=== PATIENT | female | born 1950 | race Caucasian/White ===

== ENCOUNTER 2016-11-15 10:34 | Day surgery (SDC) | payer OTHER ==
[2016-11-09 18:17] VITALS: BMI 25.3
[~2016-11-15 10:34] MED LIST: oxyCODONE HCL 10 MG SUSTAINED ACTING TABLET PO ONE
[2016-11-15] MEDS ORDERED: LIDOCAINE 1%/EPI 1:100000 (20 ML MULTI DOSE VIAL) ONE (12:59)
[2016-11-15] MEDS ORDERED: BUPIVACAINE HCL/PF 2.5 MG/ML - 30 ML VIAL IJ ONE (12:59)
[2016-11-15] MEDS ORDERED: THROMBIN (BOVINE) 5,000 UNIT VIAL TP ONE (12:59)
--- NOTE | 2016-11-15 13:01 | HP ---
History & Physical Update - History History: No Change - Physical Physical: No Change - Assessment Assessment: No Change - Plan Plan: No Change
[2016-11-15] MEDS ORDERED: MIDAZOLAM HCL 2 MG/2 ML SINGLE DOSE VIAL ONE ×2 (13:24→13:30)
[2016-11-15] MEDS ORDERED: BUPIVACAINE HCL/PF 0.5% (5MG/ML) 10 ML VIAL ONE (13:28)
[2016-11-15] MEDS ORDERED: ONDANSETRON 4 MG/2 ML VIAL ONE (13:42)
[2016-11-15] MEDS ORDERED: DEXAMETHASONE SOD PHOSPHATE 4 MG/1 ML VIAL ONE (13:42)
[2016-11-15] MEDS ORDERED: oxyCODONE HCL 5 MG TABLET PO PRN (14:19)
[2016-11-15] MEDS ORDERED: ONDANSETRON 4 MG/2 ML VIAL IVPUSH PRN (14:19)
[2016-11-15] MEDS ORDERED: LACTATED RINGERS SOLUTION 1,000 ML IV SCH (14:30)
[2016-11-15] MEDS ORDERED: methylPREDNISolone ACET (DEPO) 40 MG/1 ML VIAL ONE (14:42)
--- NOTE | 2016-11-15 15:27 | OP ---
Operative Note - Note: Operative Date: 11/15/16 Pre-Operative Diagnosis: L5-S1 stenosis, disc herniation Operation: L5-S1 laminectomy, micro discectomy Surgeon: Maciej Ch Expediter Clerk: Genoveva Kapadia Anesthesiologist/FOOD SERVICE SALES REPRESENTATIVES: Bozena Mendoza Anesthesia: Spinal Estimated Blood Loss (mls): 20 Fluid Volume Replaced (mls): 1,300 Operative Report Dictated: Yes
--- NOTE | 2016-11-15 15:35 | SURG ---
Surgery Advertising Copy Writer Note Advertising Copy Writer: Genoveva Kapadia PA-C Date of Service: 11/15/16 Diagnosis: L5-S1 stenosis, disc herniation Procedure: L5-S1 laminectomy, micro discectomy I was present for the entirety of the operative procedure. For further detail, please refer to operative report. Visit type - Case Type Case Type: Scheduled Admission - Emergency Emergency Visit: No - New patient This patient is new to me today: Yes Date on this admission: 11/15/16 - Critical Care Critical Care patient: No
[2016-11-15] MEDS ORDERED: traMADol HCL 50 MG TABLET PO PRN (15:44)
--- NOTE | 2016-11-15 16:00 | OP ---
DATE OF OPERATION: 11/15/2016 PREOPERATIVE DIAGNOSIS: Spinal stenosis at L5-S1. POSTOPERATIVE DIAGNOSIS: Spinal stenosis at L5-S1. PROCEDURE PERFORMED: Revision laminectomy, L5-S1. SURGEON: Maciej Ch MD DEALMAKER: KAYY Arora ESTIMATED BLOOD LOSS: 50 mL INTRAVENOUS FLUIDS: Per Anesthesia. ANESTHESIA: Spinal. COMPLICATIONS: None. DISPOSITION: Patient was brought to the PACU in stable condition. INDICATION FOR SURGERY: The patient is a 65-year-old female who has been suffering from pain going from her back down her right leg. X-rays and MRI were completed which noted that she had spinal stenosis at L5-S1 secondary to a herniated disk. She had gone through an exhaustive course of treatment for this including medications, physical therapy, as well as injections. Unfortunately, her pain continued to persist despite all this. At this point, risks, benefits, and alternatives were discussed, and the patient consented to surgery. DESCRIPTION OF OPERATION: Patient was brought to the operating room by the Anesthesia staff. After the appropriate patient identification was performed, spinal anesthesia was given. She was placed prone onto the Robbie frame. The patient was able to position herself to avoid all areas of bony prominences. Two needles were placed into the back to deidra off the L5-S1 segment, and x-ray was taken to confirm this as correct. The needles were removed, and 10 mL of lidocaine with epinephrine were injected into her back at this time. Her back was prepped and draped in a sterile manner. At this point, timeout was completed. An incision was made over her previous incision. Dissection was carried down to the fascia. Fascia was split bilaterally at this time. There was scar tissue noted at this time. A spinal needle was placed onto the L5 lamina. An x-ray was taken to confirm this as correct. The needle was removed, and the microscope was brought in. A portion of the L5-S1 lamina was removed. The portion of the inferior-superior facets was removed. A revision laminectomy was performed. The nerve root was mobilized medially. A disk herniation was noted. It was removed at this time. By the end of the procedure, the S1 nerve root on the right-hand side appeared to be well decompressed. All bleeding was well controlled at this time. Steroid was placed over the nerve root. FloSeal was placed over that. The fascia was closed with a No. 1 Vicryl suture. The subcutaneous tissues were closed with 2-0 Vicryl suture. Skin was closed with 3-0 Monocryl suture. Dermabond was applied. Steri-Strips were applied. A sterile dressing was applied. Patient was placed supine on the OR bed and brought to the PACU in stable condition. Matthias [id number]
[2016-11-15 17:23] VITALS: BP 113/66; PULSE 70; TEMP 97.9
--- NOTE | 2016-11-19 14:58 | PATH ---
Surgical Pathology Report Patient Name: ZARA ZAVALA [facility]. Rec. #: [id number] /Age/Gender: 1950 (Age: 65) / F Account: [id number] Location: [facility] Taken: 11/15/2016 Received: 11/15/2016 Reported: 11/19/2016 Physicians: Maciej Ch M.D. Specimen(s) Received DISC L5-S1 Clinical History Spinal stenosis Final Diagnosis INTERVERTEBRAL DISC, L5-S1, LAMINECTOMY: CARTILAGE WITH DEGENERATIVE CHANGES. Electronically Signed Josué Garcia M.D. Gross Description Received in formalin labelled "L5-S1" is a 1.8 x 1.7 x 0.4 cm portion of myrick fibrocartilaginous tissue. Sectioned and totally submitted in one cassette. [facility]/11/16/2016 [facility]/11/16/2016
== END 2016-11-15 17:20 | disposition home or self-care (01) ==
LOC: FASU 10:34
PROVIDERS: ATTEND Orthopaedic Surgery Orthopaedic Surgery of the Spine
PROC: 01NB0ZZ Release Lumbar Nerve, Open Approach (ICD-10-PCS; principal; 2016-11-15 14:08)
DX: M48.07 Spinal stenosis, lumbosacral region (principal)
CPT/HCPCS: 72100-TC; 76000-TC; 88304-TC; 94760